=== PATIENT | female | born 1955 | race Hispanic/Latino ===

== ENCOUNTER 2019-05-24 21:51 | Emergency (ER) | payer OTHER ==
[2019-05-24 23:02] LABS: Absolute Lymphocytes (CBC) 3.6 K/uL (0.7-4.9); Basophils % 0.5 % (0-1.3); Hematocrit 37.8 % (36.0-45.0); Lymphocytes % 43.5 % (15.3-44.8); MPV 8.8 fL (7.6-11.3); RBC Red Blood Cell Count 4.42 M/uL (3.86-4.86)
[2019-05-24 23:04] LABS: Protime INR 0.9
[2019-05-24 23:08] LABS: Potassium 3.3 mmol/L (3.5-5.1)
[2019-05-24] MEDS ORDERED: POTASSIUM CL SA 10 MEQ TAB PO ONE (23:14)
--- NOTE | 2019-05-25 02:38 | ER ---
Nurse's Notes [facility] Name: Gini Kelelr Age: 63 yrs Sex: Female : 1955 Arrival Date: 05/24/2019 Time: 21:56 Bed 17 Private MD: Nathaniel Peace Diagnosis: Visual disturbances Presentation: 05/24 21:59 Presenting complaint: Patient states: Last night when I went to bed and closed my eyes la1 its like there was this white flashing light and it happened again this morning. Transition of care: patient was not received from another setting of care. Onset of symptoms was May 24, 2019. Risk Assessment: Do you want to hurt yourself or someone else? Patient reports no desire to harm self or others. Initial Sepsis Screen: Does the patient meet any 2 criteria? No. Patient's initial sepsis screen is negative. Does the patient have a suspected source of infection? No. Patient's initial sepsis screen is negative. Care prior to arrival: None. 21:59 Method Of Arrival: Ambulatory la1 21:59 Acuity: AVERY 3 la1 Triage Assessment: 22:07 General: Appears in no apparent distress. comfortable, Behavior is calm, cooperative, cc3 appropriate for age. Pain: Denies pain. Historical: - Allergies: 21:59 No Known Allergies; la1 - Home Meds: 21:59 simvastatin 5 mg Oral tab 1 tab once daily [Active]; lisinopril-hydrochlorothiazide la1 10-12.5 mg oral tab 1 tab once daily [Active]; - PMHx: 21:59 Hypertension; High Cholesterol; la1 - Immunization history:: Adult Immunizations up to date. - Social history:: Smoking status: Patient/guardian denies using tobacco. - Ebola Screening: : No symptoms or risks identified at this time. - Family history:: not pertinent. - Hospitalizations: : No recent hospitalization is reported. Screenin:07 Abuse screen: Denies threats or abuse. Denies injuries from another. Nutritional cc3 screening: No deficits noted. Tuberculosis screening: No symptoms or risk factors identified. Fall Risk Ambulatory Aid- None/Bed Rest/Nurse Assist (0 pts). Gait- Normal/Bed Rest/Wheelchair (0 pts) Mental Status- Oriented to own ability (0 pts). Assessment: 22:07 General: Appears in no apparent distress. uncomfortable, Behavior is calm, cooperative, cc3 appropriate for age. Pain: Denies pain. Neuro: Level of Consciousness is awake, alert, obeys commands, Oriented to person, place, time, situation, Appropriate for age. Cardiovascular: Denies chest pain, Heart tones S1 S2 present Capillary refill < 3 seconds in bilateral fingers Patient's skin is warm and dry. Respiratory: Airway is patent Respiratory effort is even, unlabored, Respiratory pattern is regular, symmetrical, Breath sounds are clear bilaterally. GI: Abdomen is round non-distended. : No signs and/or symptoms were reported regarding the genitourinary system. EENT: Parent/caregiver reports the patient having vision problem. Derm: Skin is intact, is healthy with good turgor, Skin is pink, warm \T\ dry. normal. Musculoskeletal: Circulation, motion, and sensation intact. Range of motion: intact in all extremities. 23:13 Reassessment: Patient appears in no apparent distress at this time. Patient and/or cc3 family updated on plan of care and expected duration. Pain level reassessed. Patient is alert, oriented x 3, equal unlabored respirations, skin warm/dry/pink. 23:25 Reassessment: Patient taken to CT scan department by the clinical office technician by phoebe. cc3 05/25 00:05 Reassessment: Patient appears in no apparent distress at this time. Patient and/or cc3 family updated on plan of care and expected duration. Pain level reassessed. Patient is alert, oriented x 3, equal unlabored respirations, skin warm/dry/pink. Patient came back from CT scan department, awaiting result. 01:12 Reassessment: Patient appears in no apparent distress at this time. Patient and/or cc3 family updated on plan of care and expected duration. Pain level reassessed. Patient is alert, oriented x 3, equal unlabored respirations, skin warm/dry/pink. 02:45 Reassessment: Patient appears in no apparent distress at this time. Patient and/or cc3 family updated on plan of care and expected duration. Pain level reassessed. Patient is alert, oriented x 3, equal unlabored respirations, skin warm/dry/pink. Dr. Sterling discharged the patient home, no prescription given. IV cannula removed and patient left ER vitally stable and ambulatory with her . No valuables left in the patient's room. Patient denies pain at this time. Patient states feeling better. Patient states symptoms have improved. Vital Signs: 05/24 22:00 Pulse 79; Resp 16; Temp 97.1; Pulse Ox 100% on R/A; Weight 74.84 kg; Height 5 ft. 3 in. la1 (160.02 cm); 22:02 BP 156 / 73; la1 23:14 BP 148 / 82; Pulse 76; Resp 15 S; Pulse Ox 97% on R/A; cc3 05/25 00:30 BP 135 / 65; Pulse 67; Resp 17 S; Pulse Ox 99% on R/A; cc3 01:12 BP 122 / 61; Pulse 71; Resp 16 S; Pulse Ox 96% on R/A; cc3 02:40 BP 124 / 73; Pulse 66; Resp 16 S; Pulse Ox 98% on R/A; Pain 0/10; cc3 05/24 22:00 Body Mass Index 29.23 (74.84 kg, 160.02 cm) la1 ED Course: 05/24 21:56 Patient arrived in ED. es 21:56 Nathaniel Peace MD is Private Physician. es 21:57 Arm band placed on right wrist. la1 22:00 Triage completed. la1 22:02 King Sterling MD is Attending Physician. rn 22:07 Olga Wiggins is Primary Nurse. cc3 22:07 Patient has correct armband on for positive identification. Placed in gown. Bed in low cc3 position. Call light in reach. Side rails up X 1. awake overnight monitor on. Pulse ox on. NIBP on. 22:25 Inserted saline lock: 20 gauge in right antecubital area, using aseptic technique. cc3 Blood collected. 22:44 CT Head Brain wo Cont In Process Unspecified. EDMS 23:45 Inserted saline lock: 22 gauge in left antecubital area, using aseptic technique. cc3 inserted by the clinical office technician Johan. 05/25 00:05 IV discontinued, intact, bleeding controlled, No redness/swelling at site. Pressure cc3 dressing applied. 00:15 CT Head Angio In Process Unspecified. EDMS 00:15 Neck Angio In Process Unspecified. EDMS 01:11 CT completed. Patient tolerated procedure well. Patient moved to CT via wheelchair. Patient moved back from [place]. 02:38 Dexter Lezama MD is Referral Physician. rn 02:45 No provider procedures requiring assistance completed. IV discontinued, intact, cc3 bleeding controlled, No redness/swelling at site. Pressure dressing applied. Administered Medications: 05/24 23:23 Drug: Potassium Chloride 40 mEq Route: PO; cc3 05/25 00:00 Follow up: Response: No adverse reaction cc3 Outcome: 02:38 Discharge ordered by . rn 02:45 Discharged to home ambulatory, with family. cc3 02:45 Condition: stable 02:45 Discharge instructions given to patient, Instructed on discharge instructions, follow up and referral plans. Demonstrated understanding of instructions, follow-up care. 02:54 Patient left the ED. cc3 Signatures: Dispatcher [employer] [place] Ervin eh Nieto, Roman, MD MD rn Attema, Lee, RN RN laOlga Treviño cc3
--- NOTE | 2019-05-25 02:39 | EDPHYS ---
Physician Documentation [facility] Name: Gini Keller Age: 63 yrs Sex: Female : 1955 Arrival Date: 05/24/2019 Time: 21:56 Bed 17 Private MD: Nathaniel Peace ED Physician King Sterling HPI: 05/24 22:20 This 63 yrs old Female presents to ER via Ambulatory with complaints of High rn Blood Pressure, Vision Problem. 22:21 The patient is experiencing flashes of light, The patient sustained None. to both eyes, rn caused by an unknown mechanism. Onset: The symptoms/episode began/occurred yesterday. Duration: the symptoms are intermittent, "a split second". Aggravated by closing eye, Alleviated by opening eye. Patient wears glasses. Severity of symptoms: At their worst the symptoms were mild in the emergency department the symptoms have improved. The patient has experienced similar episodes in the past. Reports since yesterday has had 2-3 episodes of flashes of light, both eyes, last "split second", goes away on its own and not present with eyes open. NO vision changes or pain with eyes open. No trauma. No change in medication. Reports sneezing more lately. Reports mild bilateral headache, but not worst of her life. Denies focal neuro problem. Reports has had visual auras in past but were squiggly bright lights in past and at times assoc with headaches. . Historical: - Allergies: 21:59 No Known Allergies; la1 - Home Meds: 21:59 simvastatin 5 mg Oral tab 1 tab once daily [Active]; lisinopril-hydrochlorothiazide la1 10-12.5 mg oral tab 1 tab once daily [Active]; - PMHx: 21:59 Hypertension; High Cholesterol; la1 - Immunization history:: Adult Immunizations up to date. - Social history:: Smoking status: Patient/guardian denies using tobacco. - Ebola Screening: : No symptoms or risks identified at this time. - Family history:: not pertinent. - Hospitalizations: : No recent hospitalization is reported. ROS: 22:21 Constitutional: Negative for fever, chills, and weight loss, Eyes: Negative for injury, rn pain, redness, and discharge, Neck: Negative for injury, pain, and swelling, Cardiovascular: Negative for chest pain, palpitations, and edema, Respiratory: Negative for shortness of breath, cough, wheezing, and pleuritic chest pain, Abdomen/GI: Negative for abdominal pain, nausea, vomiting, diarrhea, and constipation, MS/Extremity: Negative for injury and deformity, Skin: Negative for injury, rash, and discoloration, Neuro: Negative for weakness, numbness, tingling, and seizure, speech problem Exam: 22:21 Visual Acuity: Visual acuity is within normal limits. rn 22:21 Constitutional: This is a well developed, well nourished patient who is awake, alert, and in no acute distress. Head/Face: Normocephalic, atraumatic. Eyes: Pupils equal round and reactive to light, extra-ocular motions intact. Lids and lashes normal. Conjunctiva and sclera are non-icteric and not injected. Cornea within normal limits. Periorbital areas with no swelling, redness, or edema. Neuro: Awake and alert, GCS 15, oriented to person, place, time, and situation. Cranial nerves II-XII grossly intact. Motor strength 5/5 in all extremities. Sensory grossly intact. Cerebellar exam normal. Normal gait. Vital Signs: 22:00 Pulse 79; Resp 16; Temp 97.1; Pulse Ox 100% on R/A; Weight 74.84 kg; Height 5 ft. 3 in. la1 (160.02 cm); 22:02 BP 156 / 73; la1 23:14 BP 148 / 82; Pulse 76; Resp 15 S; Pulse Ox 97% on R/A; cc3 05/25 00:30 BP 135 / 65; Pulse 67; Resp 17 S; Pulse Ox 99% on R/A; cc3 01:12 BP 122 / 61; Pulse 71; Resp 16 S; Pulse Ox 96% on R/A; cc3 02:40 BP 124 / 73; Pulse 66; Resp 16 S; Pulse Ox 98% on R/A; Pain 0/10; cc3 05/24 22:00 Body Mass Index 29.23 (74.84 kg, 160.02 cm) la1 MDM: 05/24 22:02 Patient medically screened. rn 05/25 01:57 Differential diagnosis: CVA, brain tumor, aneurysm, retinal problem, vitreous rn hemorrhage, aura, migraine. Differential diagnosis:. Data reviewed: vital signs, nurses notes, radiologic studies. Counseling: I had a detailed discussion with the patient and/or guardian regarding: the historical points, exam findings, and any diagnostic results supporting the discharge/admit diagnosis, radiology results, the need for outpatient follow up, to return to the emergency department if symptoms worsen or persist or if there are any questions or concerns that arise at home. Response to treatment: the patient's condition has returned to base line, the patient is now symptom free, and as a result, I will discharge patient. Special discussion: I discussed with the patient/guardian in detail that at this point there is no indication for admission to the hospital. It is understood, however, that if the symptoms persist or worsen the patient needs to return immediately for re-evaluation. Based on the history and exam findings, there is no indication for further emergent testing or inpatient evaluation. I discussed with the patient/guardian the need to see the neurologist for further evaluation of the symptoms. I discussed with the patient/guardian the need to see the opthamologist for further evaluation of the symptoms. ED course: CT head negative for acute finding, pending CTA head/neck. Will dc home given asymptomatic, normal neuro exam, and symptoms only lasted for "split second". Recommend to f/u with ophthalmology for retinal exam given flashing lights. . 02:25 ED course: Delay due to radiology, have apologized to patient, still waiting on government professor read. . 02:37 ED course: CTA head and neck negative for acute findings.. rn 05/24 22:17 Order name: CBC with Diff; Complete Time: 23:10 rn 05/24 22:17 Order name: Basic Metabolic Panel; Complete Time: 23:10 rn 05/24 22:17 Order name: Protime (+inr); Complete Time: 23:10 rn 05/24 22:17 Order name: Ptt, Activated; Complete Time: 23:10 rn 05/24 22:17 Order name: CT Head Brain wo Cont rn 05/24 23:01 Order name: CT Head Angio rn 05/24 22:17 Order name: IV Start; Complete Time: 22:31 rn 05/25 00:11 Order name: Neck Angio EDMS Administered Medications: 05/24 23:23 Drug: Potassium Chloride 40 mEq Route: PO; cc3 05/25 00:00 Follow up: Response: No adverse reaction cc3 Disposition: 10/17/19 02:38 Discharged to Home. Impression: Visual disturbances. - Condition is Stable. - Medication Reconciliation Form, Thank You Letter, Antibiotic Education, Prescription Opioid Use form. - Follow up: Dexter Lezama; When: 1 - 2 days; Reason: Recheck today's complaints, Re-evaluation by your physician. - Problem is new. - Symptoms have improved. Signatures: Dispatcher [employer] [facility] King Sterling MD MD rn Attema, Lee, RN RN laOlga Treviño cc3 Corrections: (The following items were deleted from the chart) 00:11 05/24 23:01 Neck Angio+CT.RAD.BRZ ordered. [facility] 05/25 02:54 02:38 05/25/2019 02:38 Discharged to Home. Impression: Visual disturbances. Condition cc3 is Stable. Forms are Medication Reconciliation Form, Thank You Letter, Antibiotic Education, Prescription Opioid Use. Follow up: Dexter Lezama; When: 1 - 2 days; Reason: Recheck today's complaints, Re-evaluation by your physician. Problem is new. Symptoms have improved. rn
[2019-05-25 03:04] VITALS: TEMP 97.1
[2019-05-25 03:09] VITALS: BP 122/61; O2SAT 96
--- NOTE | 2019-05-25 09:59 | RAD REPORT ---
EXAM DESCRIPTION: CT - Neck Angio - 05/25/2019 6:26 am CLINICAL HISTORY: 63-year-old female with vision changes. TECHNIQUE: Following dynamic intravenous nonionic contrast infusion, multiple axial helical CT image s with multiplanar reconstructions were obtained through the head and neck. The CT study is performed according to ALARA (as low as reasonably achievable) or ALARA/IMAGE GENTLY, with automatic adjustmen t of mA and/or kV according to patient size. Performed on: 05/24/2019 at 11:49 PM COMPARISON: Head CT performed on 05/24/2019 at 10:38 PM FINDINGS: CTA NECK: AORTA: The aortic arch is well imaged and demonstrates conventional branching. The origins of the left sub clavian artery, left common carotid artery and innominate artery are patent. The left vertebral arter y arises directly from the aortic arch, a developmental variant. VERTEBRAL ARTERIES: The LEFT vertebral artery arises directly from the aortic arch, developmental variant. The left verte bral artery is small in caliber throughout its course. There is attenuation of the intradural left ve rtebral artery. There is no evidence of dissection or focal stenosis. The RIGHT vertebral artery is normal in caliber and contour without evidence of dissection or signifi cant stenosis. CAROTID ARTERIES: The LEFT common carotid artery is unremarkable. There is no evidence of stenosis, dissection or occlu isaac The carotid bulb demonstrates no significant plaque. The LEFT internal carotid artery is binta l in caliber and contour without evidence of significant stenosis, dissection or occlusion. The LEFT external carotid artery is unremarkable. The RIGHT common carotid artery is unremarkable. There is no evidence of stenosis, dissection or occl usion. The carotid bulb demonstrates no significant plaque. The RIGHT internal carotid artery is un remarkable. There is no evidence of stenosis, dissection or occlusion. The RIGHT external carotid art nga is unremarkable. CTA HEAD: LEFT: INTERNAL CAROTID ARTERY: The distal internal carotid artery is unremarkable. ANTERIOR CEREBRAL ARTERY: he A1 segment is normal in caliber and contour. The A2 segment is normal i n caliber and contour. The region of the anterior communicating artery is unremarkable. MIDDLE CEREBRAL ARTERY: The M1 segment is normal in caliber and contour. The M2 branches normal in c aliber and contour. POSTERIOR CEREBRAL ARTERY: There is a origin of the left posterior cerebral artery.. The P2 se gment is normal in caliber and contour. VERTEBRAL ARTERY: The intradural left vertebral artery is diminutive in caliber but patent. RIGHT: INTERNAL CAROTID ARTERY: The distal internal carotid artery is unremarkable. ANTERIOR CEREBRAL ARTERY: The A1 segment is normal in caliber and contour. The A2 segment is normal in caliber and contour. MIDDLE CEREBRAL ARTERY: he M1 segment is normal in caliber and contour. The M2 branches normal in ca liber and contour. POSTERIOR CEREBRAL ARTERY: There is a origin of the right posterior cerebral artery. The P2 se gment is normal in caliber and contour. VERTEBRAL ARTERY: The intradural right vertebral artery is normal in caliber and contour. BASILAR ARTERY: The basilar artery is normal in caliber and contour. DURAL VENOUS SINUSES: The dural venous sinuses are patent. NON-ANGIOGRAPHIC FINDINGS: The lung apices are clear. The paranasal sinuses and mastoid air cells are clear. The orbital content s are grossly unremarkable.There are multiple coarse calcifications along the left side of the neck l ikely reflecting calcified jugulodigastric lymph nodes. These are located anterior to the carotid she ath at the level of the angle of the mandible. No acute osseous abnormalities are identified. IMPRESSION: 1. Normal CTA of the neck. There is no evidence of stenosis as per the NASCET criteria. 2. origins of the posterior cerebral arteries bilaterally. Otherwise, normal intracranial CTA. 3. The left vertebral artery arises directly from the aortic arch, a normal developmental variant. 4. Calcified left-sided jugulodigastric lymph nodes at the level of the angle of the mandible likely related to prior granulomatous infection or other chronic process. Electronically signed by: Swati Hughes DO 05/25/2019 12:36 AM CDT Due to temporary technical issues with the PACS/Fluency reporting system, reports are being signed by the in house radiologist as a courtesy to ensure prompt reporting. The interpreting radiologist is f ully responsible for the content of the report.
--- NOTE | 2019-05-25 10:01 | RAD REPORT ---
EXAM DESCRIPTION: CT - Head Brain Wo Cont - 05/25/2019 6:23 am CLINICAL HISTORY: 63 years Female, eye flashes;Headache TECHNIQUE: 5 mm axial images were obtained along with 3 mm reformatted coronal and sagittal images. This exam was performed according to our departmental dose-optimization program, which includes autom ated exposure control, adjustment of the mA and/or kV according to patient size and/or use of iterati ve reconstruction technique. COMPARISON: None. FINDINGS: No acute abnormal extracerebral fluid collections are demonstrated. The cortical sulci, ventricles, and cisterns are moderately prominent suggestive of global parenchyma l volume loss.. There are no areas of altered attenuation identified to suggest acute hemorrhage or infarction. There is a calcified pleural-based mass along the the right parietal lobe laterally which measures 1. 1 x 0.6 cm. This is consistent with a meningioma. There is no associated mass effect or edema. The visualized portions of the paranasal sinuses and mastoid air cells are clear. IMPRESSION: 1. No acute intracranial abnormality. Electronically signed by: Timo Bryant MD 05/24/2019 10:52 PM CDT Due to temporary technical issues with the PACS/Fluency reporting system, reports are being signed by the in house radiologist as a courtesy to ensure prompt reporting. The interpreting radiologist is f ully responsible for the content of the report.
== END 2019-05-25 02:54 | disposition home or self-care (01) ==
LOC: ER 21:51
DX: H53.8 Other visual disturbances (principal); R51 Headache; I10 Essential (primary) hypertension; E78.00 Pure hypercholesterolemia, unspecified
CPT/HCPCS: 85025; 80048; 36415; 85610; 85730; 70450; 70496; 70498; 99285; Q9967

== ENCOUNTER 2025-03-18 15:04 | Emergency (ER) | payer BC ==
--- OUTSIDE RECORDS SUMMARY | 2025-03-18 15:08 | XMS REPORT | Continuity of Care Document ---
Author Name Unknown Address [address] [place] [address]. [address] [place] [address] [facility] [place] Address [address] [facility]. 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 2 [id number] 2020 00:00:00 Problems Condition Name Condition Details Condition Category Status Onset Date Resolution Date Last Treatment Date Treating Clinician Comments Source Osteoporos is Osteoporos is Disease Active 03-07 00:00: 00 Lauren Finch - Externa l Macular hole of left eye Macular hole of left eye Disease Active 03-07 00:00: 00 Lauren Finch - Externa l Hypertensi on Hypertensi on Disease Active 04-15 00:00: 00 Lauren Marquezold - Externa l Hyperlipem ia Hyperlipem ia Disease Active 04-15 00:00: 00 Lauren Marquezold - Externa l PEREZ (nonalcoho lic steatohepa titis) PEREZ (nonalcoho lic steatohepa titis) Disease Active 04-15 00:00: 00 Lauren whipple Overweight Overweight Disease Active 04-15 00:00: 00 Lauren Pereza l Social History Social Habit Start Date Stop Date Quantity Comments Source Sexual orientation Vee galaviz Josette - External ASSERTION Not Lauren Finch - External Alcoholic beverage intake 2025-02-19 00:00:00 2025-02-19 00:00:00 Current drinker of alcohol (finding) Lauren Finch - External Alcohol Comment 2024-10-12 00:00:00 2024-10-12 00:00:00 socially Lauren Finch - External History of Social function 2022-07-15 00:00:00 2022-07-15 00:00:00 Lauren Finch - External Sex 2020-11-05 17:21:07 2020-11-05 17:21:07 Female (finding) Lauren Finch - External Sex [birth year] at 1955 00:00:00 1955 00:00:00 Lauren Finch - External Smoking Status Start Date Stop Date Source Never smoked tobacco Lauren Fnich - External Medications Ordered Medication Name Filled Medication Name Start Date Stop Date Current Medication? Ordering Clinician Indication Dosage Frequency Signature (SIG) Comments Components Source Cetirizine HCl (ZyrTEC Allergy) 10 MG oral TABLET DISPERSIBLE 14 00:00: 00 Yes [id number] 1{tbl} QD Take 1 tablet by mouth daily. Lauren whipple Ondansetron (ZOFRAN) 4 MG oral TABLET DISPERSIBLE 6-11 00:00: 00 Yes DISSOLVE ONE TABLET EVERY 8 HOURS NEEDED Lauren whipple Meloxicam 7.5 MG oral Tablet 1-27 00:00: 00 10-12 00:00 :00 No TAKE 1 TABLET BY MOUTH EVERY 24 HOURS NEEDED Lauren whipple LISINOPRIL- HCTZ 10-12.5 MG oral Tablet 2023-08 1-18 00:00: 00 Yes [id number] 1{tbl} QD Take 1 tablet by mouth daily. Lauren whipple Simvastatin 5 MG oral Tablet 2023-08 00:00: 00 Yes [id number] 5mg QD Take 1 tablet (5 mg total) by mouth daily. Lauren whipple OFLOXACIN, OPHTH, 0.3 % ophthalmic Solution 04-24 00:00: 00 06-26 00:00 :00 No INSTILL 1 DROP INTO LEFT EYE 4 TIMES DAILY FOR 7 DAYS THEN STOP. START DROP AFTER POST OP VISIT. Lauren whipple prednisoLON E Acetate 1 % ophthalmic Suspension 04-24 00:00: 00 06-26 00:00 :00 No See Admin Instructio ns PLEASE SEE ATTACHED FOR DETAILED DIRECTIONS . Lauren whipple LISINOPRIL- HCTZ 10-12.5 MG oral Tablet 03-07 00:00: 00 06-26 00:00 :00 No [id number] 1{tbl} QD Take 1 tablet by mouth daily. Lauren whipple Simvastatin 5 MG oral Tablet 03-07 00:00: 00 06-26 00:00 :00 No [id number] 5mg QD Take 1 tablet (5 mg total) by mouth daily. Lauren whipple LISINOPRIL- HCTZ 10-12.5 MG oral Tablet 09-07 00:00: 00 03-07 00:00 :00 No [id number] 1{tbl} QD Take 1 tablet by mouth daily. Lauren whipple LISINOPRIL- HCTZ 10-12.5 MG oral Tablet 08-29 00:00: 00 09-07 00:00 :00 No [id number] 1{tbl} TAKE 1 TABLET BY MOUTH EVERY DAY Lauren whipple PAXLOVID STANDARD (30) (300/100) Therapy Pack 2022-08 00:00: 00 09-07 00:00 :00 No TAKE 3 TABLETS BY MOUTH 2 TIMES PER DAY FOR 5 DAYS Lauren whipple Promethazin e-DM 6.25-15 MG/5ML oral Syrup 2022-0817 00:00: 00 09-07 00:00 :00 No TAKE 1 TEASPOONFU L (5 ML) BY MOUTH EVERY 8 HOURS FOR COUGH Lauren whipple Simvastatin 5 MG oral Tablet 04-23 00:00: 00 03-07 00:00 :00 No [id number] 5mg QD TAKE 1 TABLET (5 MG TOTAL) BY MOUTH DAILY. Lauren whipple Triamcinolo ne Acetonide 0.1 % apply externally Cream 2021-08 00:00: 00 09-07 00:00 :00 No [id number] Apply to affected areas twice daily - avoid face and groin Lauren whipple Triamcinolo ne Acetonide 0.1 % apply externally Cream 2021-08 00:00: 00 Yes [id number] Apply to affected areas twice daily - avoid face and groin Lauren whipple Famotidine (PEPCID) 20 MG oral tablet 2021-08 00:00: 00 06-17 00:00 :00 No [id number] TAKE 1 TABLET BY MOUTH TWICE A DAY Lauren whipple Famotidine (PEPCID) 20 MG oral tablet 05-05 00:00: 00 Yes [id number] 20mg Take 1 tablet (20 mg total) by mouth 2 times daily Lauren whipple Mupirocin (BACTROBAN) 2 % apply externally Ointment 05-05 00:00: 00 09-07 00:00 :00 No [id number] Apply 1 applicatio n topically 3 times daily Lauren whipple predniSONE (DELTASONE) 10 MG oral tablet 05-05 00:00: 00 05-16 04:59 :00 No [id number] Take 1 tablet (10 mg total) by mouth 2 times daily for 5 days, THEN 1 tablet (10 mg total) daily for 5 days. Lauren whipple Valacyclovi r HCl 1 g oral Tablet 04-22 00:00: 00 Yes [id number] 1000mg Take 1 tablet (1,000 mg total) by mouth every 8 hours Lauren Finch - Chrisa l Simvastatin 5 MG oral Tablet 04-22 00:00: 00 Yes [id number] 5mg Take 1 tablet (5 mg total) by mouth daily Lauren tucker - Externa l LISINOPRIL- HCTZ 10-12.5 MG oral Tablet 04-22 00:00: 00 Yes [id number] 1{tbl} Take 1 tablet by mouth daily Lauren baldemarghada - Externa l LISINOPRIL- HCTZ 10-12.5 MG oral Tablet 04-15 09:22: 09 04-15 00:00 :00 No 87 1{tbl} Take 1 tablet by mouth daily Indication s: High Blood Pressure Disorder Lauren tucker LISINOPRIL- HCTZ 10-12.5 MG oral Tablet 04-15 00:00: 00 Yes [id number] 1{tbl} Take 1 tablet by mouth daily Lauren Finch Simvastatin 5 MG oral Tablet 04-15 00:00: 00 Yes [id number] 5mg Take 1 tablet (5 mg total) by mouth daily Lauren Finch Simvastatin 5 MG oral Tablet 02-11 00:00: 00 04-15 00:00 :00 No 5mg Take 5 mg by mouth daily Lauren Finch Immunizations Ordered Immunization Name Filled Immunization Name Date Status Comments Source Influenza Virus Vaccine, age 6 months and up 2022-04-22 00:00:00 Completed Lauren Finch - External Influenza Virus Vaccine, age 6 months and up 2022-04-22 00:00:00 Completed Lauren Finch - External Influenza Virus Vaccine, age 6 months and up 2022-04-22 00:00:00 Completed Lauren Finch - External Pneumococcal Vaccine, Polysaccharide 2014-08-09 00:00:00 Completed Lauren Finch Pneumococcal Vaccine, Polysaccharide 2014-08-09 00:00:00 Completed Lauren Finch - External Pneumococcal Vaccine, Polysaccharide 2014-08-09 00:00:00 Completed Lauren Finch - External Pneumococcal Vaccine, Polysaccharide 2014-08-09 00:00:00 Completed Lauren Finch - External Tdap- (Boostrix, Adacel) 2014-02-12 00:00:00 Completed Lauren Seybold Tdap- (Boostrix, Adacel) 2014-02-12 00:00:00 Completed Lauren Seybold - External Tdap- (Boostrix, Adacel) 2014-02-12 00:00:00 Completed Lauren Seybold - External Tdap- (Boostrix, Adacel) 2014-02-12 00:00:00 Completed Lauren Seybold - External Tdap- (Boostrix, Adacel) Unknown Completed Lauren Seybold - External Pneumococcal Vaccine, Polysaccharide Unknown Completed Lauren Seybol d - External Influenza Virus Vaccine, age 6 months and up Unknown Completed Lauren Seybold - External Tdap- (Boostrix, Adacel) Unknown Completed Lauren Seybold - External Pneumococcal Vaccine, Polysaccharide Unknown Completed Lauren Seybol d - External Influenza Virus Vaccine, age 6 months and up Unknown Completed Lauren Seybold - External Tdap- (Boostrix, Adacel) Unknown Completed Lauren Seybold - External Pneumococcal Vaccine, Polysaccharide Unknown Completed Lauren Seybol d - External Influenza Virus Vaccine, age 6 months and up Unknown Completed Lauren Seybold - External Tdap- (Boostrix, Adacel) Unknown Completed Lauren Seybold - External Pneumococcal Vaccine, Polysaccharide Unknown Completed Lauren Seybol d - External Influenza Virus Vaccine, age 6 months and up Unknown Completed Lauren Seybold - External Tdap- (Boostrix, Adacel) Unknown Completed Lauren Seybold - External Pneumococcal Vaccine, Polysaccharide Unknown Completed Lauren Seybol d - External Influenza Virus Vaccine, age 6 months and up Unknown Completed Lauren Seybold - External Vital Signs Vital Name Observation Time Observation Value Comments S ource Systolic blood pressure 2025-02-19 17:56:00 124 mm[Hg] Lauren baldemaro ld - External Diastolic blood pressure 2025-02-19 17:56:00 74 mm[Hg] Lauren baldemaro ld - External Heart rate 2025-02-19 17:56:00 76 /min Jeniffer Finch - External Body temperature 2025-02-19 17:56:00 36.22 Gina Lauren ybold - External Respiratory rate 2025-02-19 17:56:00 14 /min Lauren Seybold - External Body height 2025-02-19 17:56:00 160 cm Rosangela ey Seybold - External Body weight 2025-02-19 17:56:00 74.39 kg Rosangela ey Seybold - External BMI 2025-02-19 17:56:00 29.05 kg/m2 Rosangela ey Seybold - External Oxygen saturation in Arterial blood by Pulse oximetry 2025-02-19 17:56:00 98 /min Lauren Seybo ld - External Systolic blood pressure 2024-10-12 15:15:00 124 mm[Hg] Lauren Seybo ld - External Diastolic blood pressure 2024-10-12 15:15:00 78 mm[Hg] Lauren Seybo ld - External Heart rate 2024-10-12 15:15:00 77 /min Kelse y Seybold - External Body temperature 2024-10-12 15:15:00 36.5 Gina Lauren Seybold - External Respiratory rate 2024-10-12 15:15:00 14 /min Lauren Seybold - External Body height 2024-10-12 15:15:00 160 cm Rosangela ey Seybold - External Body weight 2024-10-12 15:15:00 73.483 kg Rosangela ey Seybold - External BMI 2024-10-12 15:15:00 28.70 kg/m2 Rosangela ey Seybold - External Oxygen saturation in Arterial blood by Pulse oximetry 2024-10-12 15:15:00 96 /min Lauren Seybo ld - External Systolic blood pressure 2024-06-26 14:52:00 132 mm[Hg] Lauren Seybo ld - External Diastolic blood pressure 2024-06-26 14:52:00 82 mm[Hg] Lauren Seybo ld - External Heart rate 2024-06-26 14:52:00 83 /min Kelse y Seybold - External Body temperature 2024-06-26 14:52:00 35.94 Gina Lauren Seybold - External Respiratory rate 2024-06-26 14:52:00 15 /min Lauren Seybold - External Body height 2024-06-26 14:52:00 160 cm Rosangela ey Seybold - External Body weight 2024-06-26 14:52:00 75.751 kg Rosangela ey Seybold - External BMI 2024-06-26 14:52:00 29.58 kg/m2 Rosangela ey Seybold - External Systolic blood pressure 2024-03-07 13:01:00 136 mm[Hg] Lauren Seybo ld - External Diastolic blood pressure 2024-03-07 13:01:00 74 mm[Hg] Lauren Seybo ld - External Heart rate 2024-03-07 13:01:00 63 /min Kelse y Seybold - External Body temperature 2024-03-07 13:01:00 36.61 Gina Lauren Seybold - External Respiratory rate 2024-03-07 13:01:00 15 /min Lauren Seybold - External Body height 2024-03-07 13:01:00 160 cm Rosangela ey Seybold - External Body weight 2024-03-07 13:01:00 77.111 kg Rosangela ey Seybold - External BMI 2024-03-07 13:01:00 30.11 kg/m2 Rosangela ey Seybold - External Systolic blood pressure 2023-09-07 14:35:00 120 mm[Hg] Lauren Seybo ld - External Diastolic blood pressure 2023-09-07 14:35:00 80 mm[Hg] Lauren Seybo ld - External Heart rate 2023-09-07 14:35:00 71 /min Kelse y Seybold - External Body temperature 2023-09-07 14:35:00 35.72 Gina Lauren Seybold - External Respiratory rate 2023-09-07 14:35:00 14 /min Lauren Seybold - External Body height 2023-09-07 14:35:00 160 cm Rosangela ey Seybold - External Body weight 2023-09-07 14:35:00 73.029 kg Rosangela ey Seybold - External BMI 2023-09-07 14:35:00 28.52 kg/m2 Rosangela ey Seybold - External Systolic blood pressure 2022-05-05 20:03:00 127 mm[Hg] Lauren Seybo ld - External Diastolic blood pressure 2022-05-05 20:03:00 75 mm[Hg] Lauren Seybo ld - External Heart rate 2022-05-05 20:03:00 83 /min Atase y Seybold - External Body temperature 2022-05-05 20:03:00 36.5 Gina Lauren Seybold - External Respiratory rate 2022-05-05 20:03:00 14 /min Lauren Seybold - External Body height 2022-05-05 20:03:00 160 cm Rosangela ey Seybold - External Body weight 2022-05-05 20:03:00 77.111 kg Rosangela ey Seybold - External BMI 2022-05-05 20:03:00 30.11 kg/m2 Rosangela ey Seybold - External Oxygen saturation in Arterial blood by Pulse oximetry 2022-05-05 20:03:00 99 /min Lauren Marquezo ld - External Systolic blood pressure 2021-04-15 13:45:00 112 mm[Hg] Lauren Seybo ld Diastolic blood pressure 2021-04-15 13:45:00 70 mm[Hg] Lauren Almonteybo ld Heart rate 2021-04-15 13:45:00 77 /min Kelse y Seybold Body temperature 2021-04-15 13:45:00 36 Gina Lauren Almonteybold Respiratory rate 2021-04-15 13:45:00 12 /min Lauren Almonteybold Body height 2021-04-15 13:45:00 160 cm Rosangela ey Seybold Body weight 2021-04-15 13:45:00 74.118 kg Rosangela ey Seybold BMI 2021-04-15 13:45:00 28.95 kg/m2 Rosangela ey Seybold Procedures Procedure Date / Time Performed Performing Clinicia n Source URINALYSIS, COMPLETE 2021-04-15 15:16:00 Yunior Lemon MICROSCOPIC EXAMINATION 2021-04-15 15:16:00 Stefania Lemon LIPID PANEL 2021-04-15 14:52:00 Yunior Lemon BASIC METABOLIC PANEL (8) 2021-04-15 14:52:00 Shane Lemon Encounters Start Date/Time End Date/Time Encounter Type Admission Type Attending [facility] Care Department Encounter ID Source 2025-02-19 13:00:00 2025-02-19 13:00:00 Outpatient HUNDL, KELI LAUREN KENNEY [id number] Lauren Seybghada 2025-02-02 09:00:00 2025-02-02 09:00:00 Outpatient HUNDL, KELI LAUREN KENNEY [id number] Lauren Seybold 2024-10-12 10:45:00 2024-10-12 10:45:00 Outpatient LAB90 LAUREN KENNEY [id number] Lauren Seybold 2024-10-12 09:30:00 2024-10-12 09:30:00 Outpatient HUNDL, KELI LAUREN KENNEY [id number] Lauren Seybold 2024-09-11 08:00:00 2024-09-11 08:00:00 Outpatient HUNDL, KELI KENNEY [id number] Lauren Seybghada 2024-08-28 08:00:00 2024-08-28 08:00:00 Outpatient HUNDL, KELI KENNEY [id number] Lauren Seybold 2024-06-26 09:00:00 2024-06-26 09:00:00 Outpatient HUNDL, KELI LAUREN KENNEY [id number] Lauren Seybold 2024-06-07 08:00:00 2024-06-07 08:00:00 Outpatient HUNDL, KELI KENNEY [id number] Lauren Seybold 2024-06-05 10:30:00 2024-06-05 10:30:00 Outpatient HUNDL, KELI KENNEY [id number] Lauren Seybold 2024-03-07 08:00:00 2024-03-07 08:00:00 Outpatient HUNDL, KELI KENNEY [id number] Lauren Seybold 2023-09-21 13:00:00 2023-09-21 13:00:00 Outpatient HUNDL, KELI KENNEY [id number] Lauren Seybold 2023-09-07 10:15:00 2023-09-07 10:15:00 Outpatient LAB90 LAUREN KENNEY [id number] Lauren Seybold 2023-09-07 09:00:00 2023-09-07 09:00:00 Outpatient HUNDL, [facility]ELI KENNEY [id number] [facility] 2023-09-07 00:00:00 2023-09-07 00:00:00 Outpatient HUNDL, KELI KENNEY [id number] Lauren Seybold 2023-08-28 00:00:00 2023-08-28 00:00:00 Outpatient HUNDL, KELI KENNEY [id number] [facility] 2023-07-29 00:00:00 2023-07-29 00:00:00 Outpatient HUNDL, [facility]EL[facility] KENNEY [id number] [facility] 2023-07-04 00:00:00 2023-07-04 00:00:00 Outpatient HUNDL, KEIL KENNEY [id number] [facility] 2023-04-21 00:00:00 2023-04-21 00:00:00 Outpatient HUNDL, KELI KENNEY [id number] [facility] 2022-07-17 13:30:00 2022-07-17 13:30:00 Outpatient VERGARAAGNIESZKA MALIKZana KENNEY [id number] [facility] 2022-07-15 13:45:00 2022-07-15 13:45:00 Outpatient VERGARA, BRYON KENNEY [id number] [facility] 2022-06-17 13:15:00 2022-06-17 13:15:00 Outpatient VERGARA, BRYON KENNEY [id number] [facility] 2022-06-09 00:00:00 2022-06-09 00:00:00 Outpatient HUNDL, KELI KENNEY [id number] Lauren Seybold 2022-05-07 00:00:00 2022-05-07 00:00:00 Outpatient HUNDL, KELI KENNEY [id number] [facility] 2022-05-05 15:00:00 2022-05-05 15:00:00 Outpatient HUNDL, KELI KENNEY [id number] Lauren Seybold 2022-05-05 00:00:00 2022-05-05 00:00:00 Outpatient HUNDL, KELI KENNEY [id number] Luaren Finch 2022-04-22 11:45:00 2022-04-22 11:45:00 Outpatient LAB90 LAUREN KENNEY [id number] Lauren Finch 2022-04-22 11:15:00 2022-04-22 11:15:00 Outpatient BRENDA CAT LAUREN [id number] Lauren Finch 2022-04-22 10:00:00 2022-04-22 10:00:00 Outpatient ELISABET KELI LAUREN KENNEY [id number] Lauren Finch 2022-04-20 00:00:00 2022-04-20 00:00:00 Outpatient CEDChanel KELI KENNEY [id number] Lauren Finch 2021-09-18 16:15:00 2021-09-18 16:15:00 Outpatient DANIEL THORNE [id number] Lauren Finch 2021-09-17 16:30:00 2021-09-17 16:30:00 Outpatient FADUMODOUGAN LAUREN KENNEY [id number] Lauren Finch 2021-09-17 00:00:00 2021-09-17 00:00:00 Outpatient FADUMO, DANIEL LAUREN KENNEY [id number] Lauren Finch 2021-07-04 00:00:00 2021-07-04 00:00:00 Outpatient GERARDO YUNIORHerbert KENNEY [id number] Lauren Finch 2021-04-15 09:40:00 2021-04-15 09:40:00 Outpatient LAB90 LAUREN KENNEY [id number] Lauren Finch 2021-04-15 08:37:31 2021-04-15 08:52:31 Office Visit Yunior Lemon Jackson [id number] Lauren tucker Results Test Description Test Time Test Comments Results Result Co mments Source Lauren tuckerBASIC METABOLIC PANEL (8)2021-04-16 14:11:00* Test Item Value Reference Range Interpretation Comme nts GLUCOSE, SERUM (test code = 2345-7) 81 mg/dL 65-99 BUN (test code = 3094-0) 12 mg/dL 8-27 CREATININE, SERUM (test code = 2160-0) 0.68 mg/dL 0.57-1.00 EGFR IF NONAFRICN AM (test code = 67449-3) 93 mL/min/1.73 >59 EGFR IF AFRICN AM (test code = 12652-2) 108 mL/min/1.73 >59 [facility] randi heredia reports eGFR in compliance with the current ?recommendations of the National Kidney Foundation. [facility] will ?update reporting as new guidelines are published from the NKF-ASN ?Task force. BUN/CREATININE RATIO (test code = 3097-3) 12-28 SODIUM, SERUM (test code = 2951-2) 141 mmol/L 134-144 POTASSIUM, SERUM (test code = 2823-3) 4.2 mmol/L 3.5-5.2 CHLORIDE, SERUM (test code = 2075-0) 103 mmol/L 96-106 CARBON DIOXIDE, TOTAL (test code = 2027-9) 25 mmol/L 20-29 CALCIUM, SERUM (test code = 23941-5) 9.1 mg/dL 8.7-10.3 GAVIOTA (test code = GAVIOTA) [facility] results reported in Eastern Time. [facility] Clinical Information:SRC:B lood, venous*Venipunc ture ? [facility] Source of Specimen:Blood, venous*Venipunc Lauren SeyboldURINALYSIS, [id number] 13:14:00* Test Item Value Reference Range Interpretation Comme nts SPECIFIC GRAVITY (test code = 2965-2) 1.005-1.030 PH (test code = 5803-2) 5.0-7.5 URINE-COLOR (test code = 5778-6) Yellow Yellow APPEARANCE (test code = 5767-9) Clear Clear WBC ESTERASE (test code = 5799-2) Negative Negative PROTEIN (test code = 55651-4) 1+ Negative/Trace A GLUCOSE (test code = 2349-9) Negative Negative KETONES (test code = 2514-8) Negative Negative OCCULT BLOOD (test code = 5794-3) Negative Negative BILIRUBIN (test code = 5770-3) Negative Negative UROBILINOGEN,SEMI-QN (test code = 08031-2) 1.0 mg/dL 0.2-1.0 NITRITE, URINE (test code = 5802-4) Negative Negative MICROSCOPIC EXAMINATION (test code = 41377-2) See below: Microscopic was indicated and was performed. GAVIOTA (test code = GAVIOTA) [facility] results reported in Eastern Time. [facility] Clinical Information:SRC :Urine*Urine ?[facility] Source of Specimen:Urine* Urine Lab Interpretation (test code = 98752-9) Abnormal Lauren SetuckerMICROSCOPIC [id number] 13:14:00* Test Item Value Reference Range Interpretation Comme nts WBC (test code = 5821-4) None seen See_Comment [Automated messa ge] The system which generated this result transmitted reference range: 0 - 5 /hpf. The reference range was not used to interpret this result as normal/abnormal. RBC (test code = 20762-2) 0-2 See_Comment [Automated messa ge] The system which generated this result transmitted reference range: 0 - 2 /hpf. The reference range was not used to interpret this result as normal/abnormal. EPITHELIAL CELLS (NON RENAL) (test code = 5787-7) 0-10 See_Comment [Automated messa ge] The system which generated this result transmitted reference range: 0 - 10 /hpf. The reference range was not used to interpret this result as normal/abnormal. CASTS (test code = 82241-7) None seen None seen /lpf BACTERIA (test code = 5769-5) None seen None seen/Few GAVIOTA (test code = GAVIOTA) [facility] results reported in Eastern Time. [facility] Clinical Information:SRC: Urine*Urine ?[facility] Source of Specimen:Urine*[place] Lauren Finch Notes Date/Time Note Provider Source 2025-02-19 13:00:16 Chief Complaint Patient presents with Ear Problem Ringing in left ear since January 30, 2025 with some dizziness Swati Barnett MA T [facility] 2024-10-12 09:18:26 Chief Complaint Patient presents with Physical HRA. Patient is fasting. No other issues to discuss Swati Barnett MA [facility] 2024-06-26 08:55:04 Chief Complaint Patient presents with Blood Pressure Blood pressure follow up Swati Barnett MA II [facility] 2024-03-07 08:04:08 Chief Complaint Patient presents with Blood Pressure Follow up on blood pressure Swati [facility]ett [facility] 2023-09-07 08:40:28 Chief Complaint Patient presents with Physical Patient is fasting. No other issues to discuss Swati Barnett MA II [facility]
[2025-03-18] MEDS ORDERED: ONDANSETRON 4 MG/2 ML VIAL ONE (15:30)
[2025-03-18] MEDS ORDERED: MECLIZINE HCL 12.5 MG TAB ONE (15:30)
[2025-03-18] MEDS ORDERED: NA CHLORIDE 0.9% 1,000 ML ONE (15:31)
[2025-03-18 16:01] LABS: Absolute Lymphocytes (CBC) 2.2 K/uL (0.7-4.9); Hematocrit 39.6 % (36.0-45.0); Hemoglobin 13.8 g/dL (12.0-15.0); MCH 29.5 pg (27.0-35.0); MCHC 34.9 g/dL (32.0-36.0); MCV 84.4 fL (80-100); MPV 7.9 fL (7.6-11.3); Nucleated RBC Absolute Count 0.0 (0-0); Nucleated Red Blood Cells % 0.0 % (0-0); RBC Red Blood Cell Count 4.69 M/uL (3.86-4.86); White Blood Count 6.30 thou/uL (4.3-10.9)
[2025-03-18 16:26] LABS: ALT/SGPT 26.0 U/L (13-56); AST/SGOT 19.0 U/L (15-37); Albumin 4.1 g/dL (3.4-5.0); Albumin/Globulin Ratio 1.2 (1.1-1.8); Alkaline Phosphatase 100.0 U/L (45-117); Anion Gap 9.3 mEq/L (5.0-15.0); BUN Blood Urea Nitrogen 13.0 mg/dL (7-18); Globulin 3.5 g/dL (2.3-3.5); Glucose Level 105.0 mg/dL (74-106); Potassium 3.3 mEq/L (3.5-5.1); Troponin High Sensitivity 3.8 pg/mL (<58.9)
--- NOTE | 2025-03-18 16:50 | RAD REPORT ---
EXAMINATION: Head Brain Wo Cont CLINICAL INDICATION: Female, 69 years old.DIZZINESS TECHNIQUE: Axial CT images from the skull base to the vertex without intravenous contrast. Coronal an d sagittal reformatted images were created from the data set. One or more of the following dose reduction techniques were used: Automated exposure control, adjustment of the mA and/or kV according to patient size, and/or iterative reconstruction. Unless otherwise specified, incidental findings do not require dedicated imaging follow-up. [id number]. COMPARISON: 05/24/2019 FINDINGS: INTRACRANIAL: No acute intracranial hemorrhage. No acute large vascular territory infarct. No hydroce phalus. No mass effect or midline shift. No significant white matter disease.Dural based calcified structure along the right parietal calvarium may represent a calcified meningioma which is unchanged and of no significance. Mild chronic small vessel ischemic changes. VASCULATURE: No visualized abnormalities in the arteries or dural venous sinuses. SCALP/SKULL: No calvarial fracture identified. No acute soft tissue abnormality. SINUSES: The visualized paranasal sinuses are mostly clear. No significant mastoid fluid. IMPRESSION: No acute intracranial abnormality.
--- NOTE | 2025-03-18 17:07 | EDPHYS ---
Physician Documentation [facility] Name: Gini Keller Age: 69 yrs Sex: Female : 1955 Arrival Date: 03/18/2025 Time: 15:04 Bed 13 Private MD: ED Physician Danielle Fajardo HPI: 03/18 15:22 This 69 yrs old Female presents to ER via Ambulatory with complaints of dr5 Dizziness. 15:22 The patient presents with vertigo. Onset: The symptoms/episode began/occurred acutely. dr5 Patient is a 69-year-old female with history of hyperlipidemia and hypertension coming in with intermittent dizziness has been going on since Wednesday. Patient reports she has a history of BPPV and has a prescription for Zofran. Patient reports that she turned her head too quick on Wednesday and had some dizziness started. Patient denies visual changes and reports that she took her blood pressure medication this morning.. Historical: - Allergies: 15:14 No Known Allergies; jb4 - Home Meds: 15:14 lisinopril-hydrochlorothiazide 10-12.5 mg Oral tab 1 tab once daily [Active]; jb4 simvastatin 5 mg Oral tab 1 tab once daily [Active]; - PMHx: 15:14 High Cholesterol; Hypertension; jb4 - PSHx: 15:14 None; jb4 - Immunization history:: Adult Immunizations up to date. - Infectious Disease History:: Denies. - Social history:: Smoking status: Patient denies any tobacco usage or history of. Patient uses alcohol, occasionally. ROS: 15:22 Constitutional: as per hpi dr5 Exam: 15:22 Constitutional: This is a well developed, well nourished patient who is awake, alert, dr5 and in no acute distress. Head/Face: Normocephalic, atraumatic. Eyes: Pupils equal round and reactive to light, extra-ocular motions intact. Lids and lashes normal. Conjunctiva and sclera are non-icteric and not injected. Cornea within normal limits. Periorbital areas with no swelling, redness, or edema. Neck: Trachea midline, no thyromegaly or masses palpated, and no cervical lymphadenopathy. Supple, full range of motion without nuchal rigidity, or vertebral point tenderness. No Meningismus. Chest/axilla: Normal chest wall appearance and motion. Nontender with no deformity. No lesions are appreciated. Cardiovascular: Regular rate and rhythm with a normal S1 and S2. Normal PMI, no JVD. No pulse deficits. Respiratory: Lungs have equal breath sounds bilaterally, clear to auscultation. No rales, rhonchi or wheezes noted. No increased work of breathing, no retractions or nasal flaring. Back: No spinal tenderness. No costovertebral tenderness. Full range of motion. Skin: Warm, dry with normal turgor. Normal color with no rashes, no lesions, and no evidence of cellulitis. MS/ Extremity: Pulses equal, no cyanosis. Neurovascular intact. Full, normal range of motion. Neuro: Awake and alert, GCS 15, oriented to person, place, time, and situation. Cranial nerves II-XII grossly intact. Motor strength 5/5 in all extremities. Sensory grossly intact. Cerebellar exam normal. Normal gait. Vital Signs: 15:13 BP 161 / 100; Pulse 103; Resp 16; Temp 98.8(O); Pulse Ox 98% on R/A; Weight 72.57 kg jb4 (R); Height 5 ft. 3 in. ; 15:40 BP 134 / 93; Pulse 87; Resp 16; Pulse Ox 97% on R/A; db 16:41 BP 125 / 73; Pulse 75; Resp 16; Pulse Ox 97% ; db 17:00 BP 130 / 70; Pulse 73; Resp 16; Pulse Ox 97% on R/A; db 15:13 Body Mass Index 28.34 (72.57 kg, 160.02 cm) 4 MDM: 15:10 Medical Screening Exam initiated 03/18 15:20 Order name: CBC with Diff; Complete Time: 16:40 [facility] 03/18 15:20 Order name: CMP; Complete Time: 16:27 [facility] 03/18 15:20 Order name: Troponin HS; Complete Time: 16:27 [facility] 03/18 15:20 Order name: CT Head Brain wo Cont; Complete Time: 16:50 [facility] 03/18 15:20 Order name: EKG; Complete Time: 15:20 03/18 15:20 Order name: Cardiac monitoring; Complete Time: 15:54 [facility] 03/18 15:20 Order name: EKG - Nurse/Tech; Complete Time: 15:52 [facility] 03/18 15:20 Order name: IV Saline Lock; Complete Time: 15:54 dr5 03/18 15:20 Order name: Labs collected and sent; Complete Time: 15:54 dr5 03/18 15:20 Order name: O2 Per Protocol; Complete Time: 15:54 dr5 03/18 15:20 Order name: O2 Sat Monitoring; Complete Time: 15:54 dr5 EC:38 Rate is 91 beats/min. Rhythm is regular. QRS [place] is Normal. [place] interval is normal at dr5 154 msec. QRS interval is normal at 84 msec. QT interval is normal at 364 msec. Clinical impression: Abnormal EKG without significant change and No evidence of ischemia. Administered Medications: 15:34 Drug: Meclizine PO 25 mg PO once Route: PO; db 17:23 Follow up: Response: No adverse reaction db 15:50 Drug: NS 0.9% IV 1000 ml IV at 1000 ml once; to be given as a bolus over 60 minutes db Route: IV; Rate: 1000 ml; Site: right antecubital; 17:23 Follow up: Response: No adverse reaction; IV Status: Completed infusion; IV Intake: db 1000ml 15:50 Drug: Ondansetron IVP 4 mg IVP once; over 2 minutes Route: IVP; Site: right antecubital;db 17:23 Follow up: Response: No adverse reaction db Disposition Summary: 03/18/25 17:06 Discharge Ordered Notes: Location: Home dr5 Condition: Stable dr5 Diagnosis - Other peripheral vertigo dr5 Followup: dr5 - With: Emergency Department - When: As needed - Reason: Worsening of condition Followup: dr5 - With: Private Physician - When: 1 - 2 days - Reason: Recheck today's complaints, Continuance of care, Re-evaluation by your physician Discharge Instructions: - Discharge Summary Sheet dr5 - Dizziness dr5 - How to Perform the [place] Maneuver dr5 Forms: - Medication Reconciliation Form dr5 - Patient Portal Instructions dr5 - Leadership Thank You Letter dr5 Prescriptions: - Meclizine 25 mg Oral Tablet - take 1 tablet ORAL route every 8 hours As needed; 30 tablet; Refills: 0, dr5 Product Selection Permitted - Zofran 4 mg Oral Tablet - take 1 tablet ORAL route every 12 hours As needed; 20 tablet; Refills: 0, dr5 Product Selection Permitted Signatures: Dispatcher MedHoMimbres Memorial HospitalFaivan Giles RN RN jb4 Oxana Jackson RN RN db Adeel Villanueva, FLOAT OPERATOR-C FLOAT OPERATOR-Cdr5
--- NOTE | 2025-03-18 17:07 | ER ---
Nurse's Notes [facility] Name: Gini Keller Age: 69 yrs Sex: Female : 1955 Arrival Date: 03/18/2025 Time: 15:04 Bed 13 Private MD: Diagnosis: Other peripheral vertigo Presentation: 03/18 15:13 Chief complaint: Patient states: I feel lightheaded and dizzy almost like im drunk. jb4 This started on Wednesday. Coronavirus screen: At this time, the client does not indicate any symptoms associated with coronavirus-19. Ebola Screen: No symptoms or risks identified at this time. Initial Sepsis Screen: Does the patient meet any 2 criteria? HR > 90 bpm. Yes Does the patient have a suspected source of infection? No. Patient's initial sepsis screen is negative. Risk Assessment: Do you want to hurt yourself or someone else? Patient reports no desire to harm self or others. Onset of symptoms was March 14, 2025. Transition of care: patient was not received from another setting of care. 15:13 Method Of Arrival: Ambulatory jb4 15:13 Acuity: AVERY 3 jb4 Historical: - Allergies: 15:14 No Known Allergies; jb4 - Home Meds: 15:14 lisinopril-hydrochlorothiazide 10-12.5 mg Oral tab 1 tab once daily [Active]; jb4 simvastatin 5 mg Oral tab 1 tab once daily [Active]; - PMHx: 15:14 High Cholesterol; Hypertension; jb4 - PSHx: 15:14 None; jb4 - Immunization history:: Adult Immunizations up to date. - Infectious Disease History:: Denies. - Social history:: Smoking status: Patient denies any tobacco usage or history of. Patient uses alcohol, occasionally. Screenin:23 [facility] ED Fall Risk Assessment (Adult) History of falling in the last 3 months, db including since admission No falls in past 3 months (0 pts) Confusion or Disorientation No (0 pts) Intoxicated or Sedated No (0 pts) Impaired Gait No (0 pts) Mobility Assist Device Used No (0 pt) Altered Elimination No (0 pt) Score/Fall Risk Level 0 - 2 = Low Risk Oriented to surroundings, Maintained a safe environment. Abuse screen: Denies threats or abuse. Denies injuries from another. Nutritional screening: No deficits noted. Tuberculosis screening: No symptoms or risk factors identified. Assessment: 15:17 Reassessment: Patient appears in no apparent distress at this time. Patient and/or db family updated on plan of care and expected duration. Pain level reassessed. Patient is alert, oriented x 3, equal unlabored respirations, skin warm/dry/pink. General: Appears in no apparent distress. comfortable, Behavior is calm, cooperative. Vital Signs: 15:13 BP 161 / 100; Pulse 103; Resp 16; Temp 98.8(O); Pulse Ox 98% on R/A; Weight 72.57 kg jb4 (R); Height 5 ft. 3 in. ; 15:40 BP 134 / 93; Pulse 87; Resp 16; Pulse Ox 97% on R/A; db 16:41 BP 125 / 73; Pulse 75; Resp 16; Pulse Ox 97% ; db 17:00 BP 130 / 70; Pulse 73; Resp 16; Pulse Ox 97% on R/A; db 15:13 Body Mass Index 28.34 (72.57 kg, 160.02 cm) jb4 ED Course: 15:10 Patient arrived in ED. gl 15:10 Adeel Villanueva, BRITNEY[facility]C [facility] 15:10 Dnaielle Fajardo MD is Attending Physician. dr5 15:14 Triage completed. jb4 15:14 Arm band placed on right wrist. jb4 15:17 Oxana Jackson, RN is Primary Nurse. db 15:45 Missed attempt(s): 20 gauge in right upper arm. Bleeding controlled, band aid applied, db catheter tip intact. 15:50 Initial lab(s) drawn, by me, sent to lab. EKG done, reviewed by Adeel MOSQUERA. db Inserted saline lock: 22 gauge in right antecubital area, using aseptic technique. Blood collected. Flushed with 10 mL NS. 16:20 CT Head Brain wo Cont In Process Unspecified. EDMS 17:23 Patient has correct armband on for positive identification. Bed in low position. Call db light in reach. Side rails up X 1. Warm blanket given. Administered Medications: 15:34 Drug: Meclizine PO 25 mg PO once Route: PO; db 17:23 Follow up: Response: No adverse reaction db 15:50 Drug: NS 0.9% IV 1000 ml IV at 1000 ml once; to be given as a bolus over 60 minutes db Route: IV; Rate: 1000 ml; Site: right antecubital; 17:23 Follow up: Response: No adverse reaction; IV Status: Completed infusion; IV Intake: db 1000ml 15:50 Drug: Ondansetron IVP 4 mg IVP once; over 2 minutes Route: IVP; Site: right antecubital;db 17:23 Follow up: Response: No adverse reaction db Intake: 17:23 IV: 1000ml; Total: 1000ml. db Outcome: 17:06 Discharge ordered by MD. brown 17:24 Patient left the ED. db Signatures: Dispatcher [employer] EDMS Favian Mallory, RN RN jb4 Oxana Jackson RN RN db Adeel Villanueva, EGG PACKER-C EGG PACKER-Cdr5 Crista Armas, Reg Reg gl
[2025-03-18 18:00] VITALS: TEMP 98.8
[2025-03-18 18:09] VITALS: O2SAT 97
[2025-03-18 18:16] VITALS: BP 130/70
== END 2025-03-18 17:24 | disposition home or self-care (01) ==
LOC: ER 15:04
DX: H81.399 Other peripheral vertigo, unspecified ear (principal); I10 Essential (primary) hypertension; E78.00 Pure hypercholesterolemia, unspecified
CPT/HCPCS: 96361; 93005; 85025; 36415; 84484; 80053; 70450; 96374; 99284; J8597; J2405; J7030